=== PATIENT | female | born 1965 | race Caucasian/White ===

== ENCOUNTER 2020-06-05 11:22 | Emergency (ER) | payer MEDICARE ==
[~2020-06-05] VITALS: Ht 160 cm; Wt 95.5 kg
[2020-06-05 11:48] VITALS: BP 139/103; TEMP 98.3
[2020-06-05 12:29] LABS: BASO # 0.1 (0.0-0.2); BASO % 0.9 % (0.0-2.0); EOS # 0.3 (0.0-0.7); EOS % 4.1 % (0-4.0); GRAN # 3.2 (1.4-6.5); GRAN % 46.2 % (42.2-75.2); HEMATOCRIT 41.7 % (37.0-47.0); HEMOGLOBIN 13.9 g/dl (12.5-16.0); LYMPH # 2.4 (1.2-3.4); LYMPH % 34.4 % (20.0-51.0); MEAN CELL VOLUME 92 fl (80.0-100.0); MEAN CORPUSCULAR HEMOGLOBIN 31 pg (27.0-31.0); MEAN CORPUSCULAR HGB CONC 33 g/dl (33.0-37.0); MONO % 14.1 % (1.7-9.3); PLATELET COUNT 224 K/mm3 (130-400); RED BLOOD COUNT 4.53 M/mm3 (4.10-5.30); REDCELL DISTRIBUTION WIDTH-CV 12.3 % (11.5-14.5)
[2020-06-05] MEDS ORDERED: PRILOSEC 20MG20 MG PO (12:53)
[2020-06-05] MEDS ORDERED: LYRICA 150MG C150 MG PO (12:54)
[2020-06-05] MEDS ORDERED: MOTRIN 800800 MG/TAB PO (12:54)
[2020-06-05] MEDS ORDERED: MAG-OX 400400 MG/TAB PO (12:55)
[2020-06-05] MEDS ORDERED: TRADJENTA5 MG PO (12:55)
[2020-06-05] MEDS ORDERED: D3-5050000 IU PO (12:55)
[2020-06-05] MEDS ORDERED: MITIGARE0.6 MG PO (12:56)
[2020-06-05] MEDS ORDERED: BACTROBAN15 GM TOP (12:57)
[2020-06-05] MEDS ORDERED: ZETIA 10MG TAB10 MG PO (12:58)
[2020-06-05] MEDS ORDERED: GLUCOPHAGE500 MG/TAB PO (12:58)
[2020-06-05] MEDS ORDERED: CYMBALTA 60MG60 MG PO (12:58)
[2020-06-05] MEDS ORDERED: ANORO IH (12:59)
[2020-06-05] MEDS ORDERED: DEPAKOTE ER 25250 MG PO (12:59)
[2020-06-05] MEDS ORDERED: VENTOLIN0.09 MG IH (13:00)
[2020-06-05] MEDS ORDERED: CRESTOR20 MG PO (13:00)
[2020-06-05] MEDS ORDERED: CLEOCIN HCL300 MG PO (13:01)
[2020-06-05 13:37] LABS: ALBUMIN 4.1 gm/dL (3.5-5.0); BILIRUBIN,TOTAL 0.3 mg/dL (0.0-1.0); C-REACTIVE PROTEIN 2.1 mg/dL (0.0-0.9); CALCIUM 9.1 mg/dL (8.4-10.2); CREATININE, serum 0.58 (0.52-1.25); POTASSIUM 4.4 mmol/L (3.4-5.0); TOTAL PROTEIN 7.4 gm/dL (6.4-8.2)
[2020-06-05] MEDS ORDERED: IPRATROPIUM BROM3 M1 IH (14:48)
[2020-06-05] MEDS ORDERED: PREDNISONE50 MG PO (14:48)
[2020-06-05] MEDS ORDERED: NEB MC (14:48)
[2020-06-05 16:23] VITALS: PULSE 94
== END 2020-06-05 16:23 | disposition home or self-care (01) ==
LOC: COL.ER 11:22
PROVIDERS: Physician Assistant
DX: J45.901 Unspecified asthma with (acute) exacerbation (principal); J20.9 Acute bronchitis, unspecified; I10 Essential (primary) hypertension; E11.9 Type 2 diabetes mellitus without complications; M79.7 Fibromyalgia; I25.10 Atherosclerotic heart disease of native coronary artery without angina pectoris; F17.210 Nicotine dependence, cigarettes, uncomplicated; Z20.828 Contact with and (suspected) exposure to other viral communicable diseases; Z90.710 Acquired absence of both cervix and uterus; Z90.49 Acquired absence of other specified parts of digestive tract; Z95.5 Presence of coronary angioplasty implant and graft
CPT/HCPCS: J0696; J1100; J2405; J7030

== ENCOUNTER 2020-08-01 12:19 | Emergency (ER) | payer MEDICARE ==
[~2020-08-01] VITALS: Ht 160 cm; Wt 100.5 kg
[~2020-08-01 12:19] MED LIST: ANORO IH; BACTROBAN15 GM TOP; CLEOCIN HCL300 MG PO; CRESTOR20 MG PO; CYMBALTA 60MG60 MG PO; D3-5050000 IU PO; DEPAKOTE ER 25250 MG PO; GLUCOPHAGE500 MG/TAB PO; IPRATROPIUM BROM3 M1 IH; LYRICA 150MG C150 MG PO; MAG-OX 400400 MG/TAB PO; MITIGARE0.6 MG PO; MOTRIN 800800 MG/TAB PO; NEB MC; PREDNISONE50 MG PO; PRILOSEC 20MG20 MG PO; TRADJENTA5 MG PO; VENTOLIN0.09 MG IH; ZETIA 10MG TAB10 MG PO
[2020-08-01 12:22] VITALS: TEMP 97.9
[2020-08-01 13:14] LABS: INR 0.9 (0.8-3.0); PROTHROMBIN TIME 9.9 SECONDS (9.7-12.8)
[2020-08-01 13:24] LABS: ALANINE AMINOTRANSFERASE 20 U/L (4-34); ALBUMIN 4.4 gm/dL (3.5-5.0); ALKALINE PHOSPHATASE 76 U/L (50-136); ANION GAP 7 mmol/L (7-16); AST,SGOT 24 U/L (15-37); BASO # 0.1 (0.0-0.2); BASO % 0.7 % (0.0-2.0); BILIRUBIN,TOTAL 0.3 mg/dL (0.0-1.0); BLOOD UREA NITROGEN 12 mg/dL (7-17); CALCIUM 9.3 mg/dL (8.4-10.2); CARBON DIOXIDE 29 mmol/L (22-30); CHLORIDE 103 mmol/L (98-107); CREATININE, serum 0.59 (0.52-1.25); EOS # 0.3 (0.0-0.7); GLUCOSE 102 mg/dL (74-106); GRAN # 4.7 (1.4-6.5); GRAN % 49.6 % (42.2-75.2); HEMATOCRIT 41.6 % (37.0-47.0); HEMOGLOBIN 13.6 g/dl (12.5-16.0); LYMPH # 3.6 (1.2-3.4); LYMPH % 38.1 % (20.0-51.0); MEAN CELL VOLUME 94 fl (80.0-100.0); MEAN CORPUSCULAR HEMOGLOBIN 31 pg (27.0-31.0); MEAN CORPUSCULAR HGB CONC 33 g/dl (33.0-37.0); MEAN PLATELET VOLUME 11.6 fl (7.4-10.4); MONO # 0.8 (0.1-0.6); MONO % 8.1 % (1.7-9.3); PLATELET COUNT 268 K/mm3 (130-400); POTASSIUM 4.5 mmol/L (3.4-5.0); RED BLOOD COUNT 4.43 M/mm3 (4.10-5.30); REDCELL DISTRIBUTION WIDTH-CV 13.2 % (11.5-14.5); SODIUM 140 mmol/L (137-145); TOTAL PROTEIN 7.4 gm/dL (6.4-8.2)
[2020-08-01 13:35] LABS: TROPONIN-I < 0.012 ng/mL (0.000-0.035)
[2020-08-01 13:40] LABS: PROLACTIN 6.3 ng/mL (3.0-18.6)
[2020-08-01 14:20] LABS: COLLECTION METHOD CLEAN CATCH
[2020-08-01 14:30] LABS: PH 7 (5-8); SQUAMOUS EPITHELIAL 0-2 /hpf; URINE APPEARANCE Clear; URINE BACTERIA None Seen /hpf; URINE BILIRUBIN Negative (NEGATIVE); URINE BLOOD Negative (NEGATIVE); URINE COLOR Straw; URINE GLUCOSE Negative (NEGATIVE); URINE KETONE Negative (NEGATIVE); URINE LEUKOCYTE ESTERASE Negative (NEGATIVE); URINE NITRATE Negative (NEGATIVE); URINE PROTEIN(semi-quant) Negative (NEGATIVE); URINE RBC 0-2 /hpf; URINE UROBILINOGEN Negative (NEGATIVE)
[2020-08-01 14:48] VITALS: BP 95/65; PULSE 71
== END 2020-08-01 15:00 | disposition home or self-care (01) ==
LOC: COL.ER 12:19
PROVIDERS: Physician Assistant
DX: R25.0 Abnormal head movements (principal); R41.82 Altered mental status, unspecified; E78.5 Hyperlipidemia, unspecified; F41.9 Anxiety disorder, unspecified; F32.9 Major depressive disorder, single episode, unspecified; M79.7 Fibromyalgia; J45.909 Unspecified asthma, uncomplicated; Z95.5 Presence of coronary angioplasty implant and graft; I25.10 Atherosclerotic heart disease of native coronary artery without angina pectoris; F17.210 Nicotine dependence, cigarettes, uncomplicated; Z90.49 Acquired absence of other specified parts of digestive tract; Z90.710 Acquired absence of both cervix and uterus; Z88.8 Allergy status to other drugs, medicaments and biological substances
CPT/HCPCS: J1630; J7030